=== PATIENT | male | born 1970 | race Caucasian/White ===

== ENCOUNTER 2017-08-18 05:41 | Emergency (ER) | payer OTHER, SELFPAY ==
--- NOTE | 2017-08-18 06:36 | EDPHYS ---
Physician Documentation [facility] Name: Cristian aSnchez Age: 47 yrs Sex: Male : 1970 Arrival Date: 08/18/2017 Time: 05:43 Bed 7 Private MD: ED Physician Nash Morton HPI: 08/18 06:25 This 47 yrs old Male presents to ER via Ambulatory with complaints of Rapid gs heartbeat, High Blood Pressure. 06:25 The patient has elevated blood pressure and discovered this at home. Onset: The gs symptoms/episode began/occurred acutely, this morning. Modifying factors:. Associated signs and symptoms: Pertinent positives: lightheadedness, palpitations, Pertinent negatives: chest pain. Severity of symptoms: At its worst the blood pressure was severe, in the emergency department the blood pressure is improved, markedly. The patient has experienced similar episodes in the past, several times, over past few days. Historical: - Allergies: 05:55 No Known Allergies; lp1 - Home Meds: 05:55 None [Active]; lp1 - PMHx: 05:55 Sarcoidosis; lp1 - PSHx: 05:55 Cholecystectomy; lp1 - Immunization history:: Adult Immunizations up to date. - Social history:: Smoking status: Patient uses tobacco products, chewing tobacco. ROS: 06:25 Cardiovascular: Negative for chest pain. gs 06:25 Respiratory: Negative for orthopnea, pleurisy, shortness of breath. 06:25 All other systems are negative. Exam: 06:25 Head/Face: Normocephalic, atraumatic. Eyes: Pupils equal round and reactive to light, gs extra-ocular motions intact. Lids and lashes normal. Conjunctiva and sclera are non-icteric and not injected. Cornea within normal limits. Periorbital areas with no swelling, redness, or edema. ENT: Nares patent. No nasal discharge, no septal abnormalities noted. Tympanic membranes are normal and external auditory canals are clear. Oropharynx with no redness, swelling, or masses, exudates, or evidence of obstruction, uvula midline. Mucous membranes moist. Neck: Trachea midline, no thyromegaly or masses palpated, and no cervical lymphadenopathy. Supple, full range of motion without nuchal rigidity, or vertebral point tenderness. No Meningismus. Chest/axilla: Normal chest wall appearance and motion. Nontender with no deformity. No lesions are appreciated. Cardiovascular: Regular rate and rhythm with a normal S1 and S2. No gallops, murmurs, or rubs. Normal PMI, no JVD. No pulse deficits. Respiratory: Lungs have equal breath sounds bilaterally, clear to auscultation and percussion. No rales, rhonchi or wheezes noted. No increased work of breathing, no retractions or nasal flaring. Abdomen/GI: Soft, non-tender, with normal bowel sounds. No distension or tympany. No guarding or rebound. No evidence of tenderness throughout. Back: No spinal tenderness. No costovertebral tenderness. Full range of motion. Skin: Warm, dry with normal turgor. Normal color with no rashes, no lesions, and no evidence of cellulitis. MS/ Extremity: Pulses equal, no cyanosis. Neurovascular intact. Full, normal range of motion. Neuro: Awake and alert, GCS 15, oriented to person, place, time, and situation. Cranial nerves II-XII grossly intact. Motor strength 5/5 in all extremities. Sensory grossly intact. Cerebellar exam normal. Normal gait. 06:25 Constitutional: The patient appears alert, awake. 06:25 ECG was reviewed by the Attending Physician. Vital Signs: 05:54 BP 151 / 88; Pulse 68; Resp 18; Temp 97.5(TE); Pulse Ox 97% on R/A; Weight 113.4 kg; lp1 Height 6 ft. 1 in. (185.42 cm); Pain 0/10; 06:23 BP 150 / 83; Pulse 69; Resp 18; Pulse Ox 96% on R/A; Pain 0/10; ea 06:56 BP 122 / 87; Pulse 69; Resp 16; Pulse Ox 95% on R/A; lp1 05:54 Body Mass Index 32.98 (113.40 kg, 185.42 cm) lp1 MDM: 06:10 Patient medically screened. 06:25 Differential diagnosis: hypertensive crisis, afib, a flutter. Data reviewed: vital gs signs, nurses notes. Counseling: I had a detailed discussion with the patient and/or guardian regarding: the presence of at least one elevated blood pressure reading (>120/80) during this emergency department visit. Response to treatment: the patient's symptoms have markedly improved after treatment, the patient's symptoms have resolved after treatment, and as a result, I will discharge patient. Special discussion: I have referred the patient to see his PCP for further evaluation of high blood pressure. 08/18 06:10 Order name: EKG; Complete Time: 06:10 08/18 06:10 Order name: EKG - Nurse/Tech; Complete Time: 06:20 gs EC:25 Rate is 69 beats/min. Rhythm is regular. WA interval is normal. QRS interval is normal. gs T waves are Normal. No ST changes noted. Clinical impression: Normal ECG. Interpreted by me. Administered Medications: No medications were administered Disposition: 08/18/17 06:35 Discharged to Home. Impression: Palpitations, Essential (primary) hypertension. - Condition is Stable. - Discharge Instructions: Hypertension, Palpitations, Managing Your High Blood Pressure. - Medication Reconciliation Form, Thank You Letter, Antibiotic Education, Prescription Opioid Use form. - Follow up: Larry Kwon MD; When: 2 - 3 days; Reason: Re-evaluation by your physician. Signatures: Marivel Hemphill RN RN lp1 Nash Morton MD MD Corrections: (The following items were deleted from the chart) 06:57 06:35 08/18/2017 06:35 Discharged to Home. Impression: Palpitations; Essential lp1 (primary) hypertension. Condition is Stable. Forms are Medication Reconciliation Form, Thank You Letter, Antibiotic Education, Prescription Opioid Use. Follow up: Larry Kwon; When: 2 - 3 days; Reason: Re-evaluation by your physician. gs
--- NOTE | 2017-08-18 06:36 | ER ---
Nurse's Notes [facility] Name: Cristian Sanchez Age: 47 yrs Sex: Male : 1970 Arrival Date: 08/18/2017 Time: 05:43 Bed 7 Private MD: Diagnosis: Palpitations;Essential (primary) hypertension Presentation: 08/18 05:53 Presenting complaint: Patient states: [place] like heart was racing when he woke up this lp1 morning, has happened x 3 days, states blood pressure was 191/101, No hx of HTN, denies any chest pain; States feeling dizzy. Transition of care: patient was not received from another setting of care. Onset of symptoms was August 18, 2017. Initial Sepsis Screen: Does the patient meet any 2 criteria? No. Patient's initial sepsis screen is negative. Does the patient have a suspected source of infection? No. Patient's initial sepsis screen is negative. Care prior to arrival: None. 05:53 Method Of Arrival: Ambulatory lp1 05:53 Acuity: RICHARD 3 lp1 Historical: - Allergies: 05:55 No Known Allergies; lp1 - Home Meds: 05:55 None [Active]; lp1 - PMHx: 05:55 Sarcoidosis; lp1 - PSHx: 05:55 Cholecystectomy; lp1 - Immunization history:: Adult Immunizations up to date. - Social history:: Smoking status: Patient uses tobacco products, chewing tobacco. Screenin:56 Abuse screen: Denies threats or abuse. Denies injuries from another. Nutritional lp1 screening: No deficits noted. Tuberculosis screening: No symptoms or risk factors identified. Fall Risk None identified. 05:56 Abuse screen: Denies threats or abuse. Nutritional screening: No deficits noted. ea Tuberculosis screening: No symptoms or risk factors identified. Fall Risk None identified. Assessment: 06:07 General: Appears uncomfortable, Behavior is calm, cooperative, appropriate for age. ea Pain: Denies pain. Neuro: Level of Consciousness is awake, alert, obeys commands, Oriented to person, place, time, situation. Cardiovascular: Heart tones S1 S2 present Patient's skin is warm and dry. Respiratory: Airway is patent Respiratory effort is even, unlabored, Respiratory pattern is regular, symmetrical, Breath sounds are clear bilaterally. GI: Abdomen is non-distended. : No signs and/or symptoms were reported regarding the genitourinary system. EENT: No signs and/or symptoms were reported regarding the EENT system. Derm: Skin is pink, warm \T\ dry. Musculoskeletal: No signs and/or symptoms reported regarding the musculoskeletal system. 06:56 Reassessment: Patient and/or family updated on plan of care and expected duration. Pain ea level reassessed. Patient is alert, oriented x 3, equal unlabored respirations, skin warm/dry/pink. Discharge instruction given to patient, verbalized understanding of instruction. Vital Signs: 05:54 BP 151 / 88; Pulse 68; Resp 18; Temp 97.5(TE); Pulse Ox 97% on R/A; Weight 113.4 kg; lp1 Height 6 ft. 1 in. (185.42 cm); Pain 0/10; 06:23 BP 150 / 83; Pulse 69; Resp 18; Pulse Ox 96% on R/A; Pain 0/10; ea 06:56 BP 122 / 87; Pulse 69; Resp 16; Pulse Ox 95% on R/A; lp1 05:54 Body Mass Index 32.98 (113.40 kg, 185.42 cm) lp1 ED Course: 05:43 Patient arrived in ED. am2 05:54 Triage completed. lp1 05:54 Arm band placed on left wrist. lp1 05:56 Kezia Hill RN is Primary Nurse. ea 05:56 Patient has correct armband on for positive identification. warehouse shipping supervisor on. Pulse lp1 ox on. NIBP on. 05:58 Nash Morton MD is Attending Physician. gs 06:33 Larry Kwon MD is Referral Physician. gs 06:57 No provider procedures requiring assistance completed. Patient did not have IV access lp1 during this emergency room visit. 06:57 No provider procedures requiring assistance completed. Patient did not have IV access ea during this emergency room visit. Administered Medications: No medications were administered Outcome: 06:35 Discharge ordered by . gs 06:57 Discharged to home ambulatory. lp1 06:57 Condition: good 06:57 Discharge instructions given to patient, Instructed on discharge instructions, follow up and referral plans. Demonstrated understanding of instructions, follow-up care. 06:57 Patient left the ED. lp1 Signatures: Marivel Hemphill RN RN 1 Corina Ruelas am2 Hill, KAREEM Mast RN, ea, Gregory, MD MD gs Corrections: (The following items were deleted from the chart) 05:56 05:53 Presenting complaint: Patient states: [place] like heart was racing when he woke up lp1 this morning, states blood pressure was 191/101, No hx of HTN, denies any chest pain; States feeling dizzy lp1
--- NOTE | 2017-08-18 06:42 | EKG ---
Test Date: 2017-08-18 Test Time: 06:13:32 Medical Record Librarian: SOLOMON MEASUREMENT RESULTS: Intervals: Rate: 69 TN: 154 QRSD: 90 QT: 392 QTc: 420 [place]: P: 22 TN: 154 QRS: -9 T: 4 INTERPRETIVE STATEMENTS: Normal sinus rhythm Normal ECG No previous ECG available for comparison Electronically Signed On 08-18-17 06:41:26 CDT by Larry Kwon
== END 2017-08-18 06:57 | disposition home or self-care (01) ==
LOC: ER 05:41
DX: R00.2 Palpitations (principal); I10 Essential (primary) hypertension; D86.9 Sarcoidosis, unspecified
CPT/HCPCS: 93005; 99284

== ENCOUNTER 2021-06-02 19:15 | Emergency (ER) | payer BC, SELFPAY ==
--- OUTSIDE RECORDS SUMMARY | 2021-06-02 19:29 | XMS REPORT | Continuity of Care Document ---
:1970 Author Organization [facility] t Address [address] [place] [address] Care Team Providers Name Role Phone Jennifer ELIAS, A Primary Care Physician DYLON FARRELL Attending Clinician Unavailable Caio ELIAS, Dylon Attending Clinician Yaz HALE Attending Clinician Unavailable Lab, - Db Attending Clinician Unavailable Jennifer ELIAS, Yaz Attending Clinician Gramm ANTELMO, A Attending Clinician DYLON FARRELL Admitting Clinician Unavailable Caio ELIAS, Dylon Admitting Clinician Payers Payer Name Policy Type Policy Number Effective Date Expiration Date S ourragini [facility] [id number] 2018 00:00:00 Problems Condition Condition Condition Status Onset Resolution Last Treating Co mments Source Name Details Category Date Date Treatment Clinician Date Mass of [place] of Disease Active Univers cecum cecum 2-14 ity of 00:00: [place] [address] Medical [place] Colonic Colonic Disease Active Overview: Univ ers mass mass 1-26 Formattin ity of 00:00: g of this [place] note Medical might be Branch different from the original. Added automatic ally from request for surgery [id number] Obesity Obesity Disease Active Univers (BMI (BMI 1-12 ity of 30-39.9) 30-39.9) 00:00: [place] [address] Medical Branch History of History of Disease Active 2020-04 U nivers prediabete prediabete 1-17 it y of s s 00:00: [address] Branch Iron Iron Disease Active 2021-1 Univers deficiency deficiency 1-12 it y of 00:00: [place] 00 [facility] Screening Screening Disease Active Overview: Univers for for 08 Formattin ity of colorectal colorectal 00:00: g of this [place] cancer cancer 00 note Medical might be Branch different from the original. Added automatic ally from request for surgery [id number] Vitamin D Vitamin D Disease Active Uni vers deficiency deficiency 2-16 it y of 00:00: [place] 00 [facility] Anxiety Anxiety Disease Active Univers ity of [facility] Sarcoidosi Sarcoidosi Disease Active U nivers s s ity of [facility] Allergies, Adverse Reactions, Alerts Allergy Allergy Status Severity Reaction(s) Onset Inactive Treating Comm ents Source Name Type Date Date Clinician NO KNOWN Drug Active Univers ALLERGIE Class ity of [facility] Social History Social Habit Start Date Stop Date Quantity Comments Source Exposure to Not sure [facility] SARS-CoV-2 (event) [facility] Alcohol intake 2021-06-01 2021-06-01 Current University 00:00:00 00:00:00 non-drinker of [facility] alcohol Branch (finding) Tobacco use and 2017-09-22 2017-09-22 Former user Universi ty of exposure 00:00:00 00:00:00 [facility] Cigarettes smoked 2017-09-22 2017-09-22 Univers ity of current (pack per 00:00:00 00:00:00 [facility] ) - Reported Branch Cigarette 2017-09-22 2017-09-22 University of pack-years 00:00:00 00:00:00 [facility] History of tobacco 2009-09-22 Chews Tobacco Uni versity of use 00:00:00 [facility] Sex [birth year] At [birth year] Universit y of 00:00:00 00:00:00 [facility] Smoking Status Start Date Stop Date Source Former smoker 2017-09-22 00:00:00 2017-09-22 00:00[facility]00 [facility] Medications Ordered Filled Start Stop Current Ordering Indication Dosage Frequency Signature Comments Components Source Medication Medication Date Date Medication? Clinician (SIG) Name Name celecoxib Yes 100mg 100 mg, Univ ers (CELEBREX) 2-15 Oral, BID ity of capsule 100 23:00: [place] 00 First dose Medical on [facility] 06/01/21 at 1700, Until Discontinu ed, Routine celecoxib 2021- No 100mg 100 mg, Uni vers (CELEBREX) 06-01 Oral, BID ity of capsule 100 23:00: 23:09 MEALS, [place] mg 00 :39 First dose Medical on [facility] 06/01/21 at 1700, Until Discontinu ed, Routine pantoprazol 0 Yes 40mg 40 mg, Univ ers e 15 Oral, ity of (PROTONIX) 15:00: DAILY, [place] EC tablet 00 First dose Medi gurdeep 40 mg on [facility] 06/01/21 at 0900, Until Discontinu ed, Routine
Indicatio n for use: Severe Sepsis, None of the above pantoprazol 2021- No 40mg 40 mg, Uni vers e 06-01 Oral, ity of (PROTONIX) 15:00: 23:09 DAILY, [place] EC tablet 00 :39 First dose Medi gurdeep 40 mg on [facility] 06/01/21 at 0900, Until Discontinu ed, Routine
Indicatio n for use: Severe Sepsis, None of the above acetaminoph 0 Yes 1000mg 1,000 mg, Univers en 2-15 Oral, Q8H, ity of (TYLENOL) 12:00: [place] 00 on [facility] Medical 1,000 mg 06/01/21 at [facility] h 0600, Until Discontinu ed, Routine acetaminoph 2021- No 1000mg 1,000 mg, Univers en 06-01 Oral, Q8H, ity of (TYLENOL) 12:00: 23:09 First dose [place] tablet 00 :39 on [facility] Medical 1,000 mg 06/01/21 at [facility] h 0600, Until Discontinu ed, Routine methocarbam 2021-0 Yes 500mg 500 mg, Un conrado oL 2-15 Oral, Q8H, ity of (ROBAXIN) 04:00: First dose [place] tablet 500 00 on [facility] Medical mg 05/31/21 at Branch 2200, Until Discontinu ed, Routine methocarbam 2021-0 2021- No 500mg 500 mg, U nivers oL 2-15 02-15 Oral, Q8H, ity of (ROBAXIN) 04:00: 23:09 First dose [place] tablet 500 00 :39 on Mon Medical mg 05/31/21 at Branch 2200, Until Discontinu ed, Routine ibuprofen Yes [id number] 600mg Take 1 Univers 600 mg 2-15 [id number] tablet by ity of tablet 00:00: mouth [place] 00 every 8 Medical (eight) Branch hours as needed (Alternate with Tylenol every 4 hours). ibuprofen Yes [id number] 600mg Take 1 Univers 600 mg 2-15 [id number] tablet by ity of tablet 00:00: mouth [place] 00 every 8 Medical (eight) Branch hours as needed (Alternate with Tylenol every 4 hours). alum-mag 2021- Yes [id number] 30mL Take 30 mL Univers hydroxide-s 2-15 - 77018 by mouth it y of imeth 00:00: 04:59 every 6 [place] :00 (six) Medical mg/5 mL hours as Branch suspension needed for Indigestio n for up to 30 days. alum-mag 2021- Yes [id number] 30mL Take 30 mL Univers hydroxide-s 2-15 - [id number] by mouth it y of imeth 00:00: 04:59 every 6 [place] :00 (six) Medical mg/5 mL hours as Branch suspension needed for Indigestio n for up to 30 days. acetaminoph 2021- Yes [id number] 650mg Take 1 Univers en (TYLENOL 2-06-09 [id number] tablet by i ty of 8 HOUR) 650 00:00: 05:59 [place] mg CR 00 :00 every 8 Medical tablet (eight) Branch hours as needed for Pain (Alternate with Ibuprofen every 4 hours) for up to 7 days. acetaminoph 2021- Yes [id number] 650mg Take 1 Univers en (TYLENOL 2-15 - 62369 tablet by i ty of 8 HOUR) 650 00:00: 05:59 [place] mg CR 00 :00 every 8 Medical tablet (eight) Branch hours as needed for Pain (Alternate with Ibuprofen every 4 hours) for up to 7 days. traMADoL 50 2021- Yes [id number] 50mg Take 1 Uni vers mg tablet 06-01 tablet by ity of 00:00: 05:59 mouth [place] 00 :00 every 8 Medical (eight) Branch hours as needed for Pain (scale 7-10) for up to 3 days. Indication s: acute pain traMADoL 50 2021- Yes [id number] 50mg Take 1 Uni vers mg tablet 06-01 tablet by ity of 00:00: 05:59 mouth [place] 00 :00 every 8 Medical (eight) Branch hours as needed for Pain (scale 7-10) for up to 3 days. Indication s: acute pain acetaminoph 2021- No 1000mg 1,000 mg, Univers en ADULT 06-01 IV ity of ([facility]) 00:00: 18:41 Infusion, [place] injection 00 :00 Administer Medi gurdeep 1,000 mg over 15 Branch Minutes, Q6H, 4 doses, First dose on Mon05/31/21 at 1800, Last dose on Mon06/01/21 at 1200, Routine
Indicatio n: Perioperat daniel Patient acetaminoph 2021- No 1000mg 1,000 mg, Univers en ADULT 06-01 IV ity of ([facility]) 00:00: 18:41 [place]fusion, [place] injection 00 :00 Administer Medi gurdeep 1,000 mg over 15 Branch Minutes, Q6H, 4 doses, First dose on Mon05/31/21 at 1800, Last dose on Mon06/01/21 at 1200, Routine
Indicatio n: Perioperat daniel Patient enoxaparin Yes 40mg 40 mg, Unive rs (LOVENOX) 05-31 Subcutaneo ity of injection 23:00: [place], DAILY, [place] 40 mg 00 First dose Medical on Mon05/31/21 at 1700, Until Discontinu ed, Routine enoxaparin 2021- No 40mg 40 mg, Univ ers (LOVENOX) 05-31 Subcutaneo ity of injection 23:00: 23:09 us, DAILY, [place] 40 mg 00 :39 First dose Medical on Mon05/31/21 at 1700, Until Discontinu ed, Routine ondansetron 2021- No 4mg 4 mg, Slow Univers (ZOFRAN 05-31 IV Push, ity of (PF)) 20:53: 21:16 PRN, 1 [place] injection 4 12 :00 dose, Medical mg Starting Branch on Mon05/31/21 at 1453, Until Discontinu ed, Routine, Nausea and Vomiting (N/V), PACU ondansetron 2021- No 4mg 4 mg, Slow Univers (ZOFRAN 05-31 IV Push, ity of (PF)) 20:53: 21:16 PRN, 1 [place] injection 4 12 :00 dose, Medical mg Starting Branch on Mon05/31/21 at 1453, Until Discontinu ed, Routine, Nausea and Vomiting (N/V), PACU HYDROcodone 2021- No 1{tbl} 1 tablet, Univers -acetaminop 05-31 Oral, ity of hen (NORCO 20:48: 02:09 Q6HPRN, [place] 5) 5-325 mg 25 :46 Starting Medi gurdeep tablet 1 on Mon Branch tablet 05/31/21 at 1448, Until Mon05/31/21 at 2008, Routine, Pain (scale 4-6), PACU HYDROcodone 2021- No 1{tbl} 1 tablet, Univers -acetaminop 05-31 Oral, ity of hen (NORCO 20:48: 02:09 Q6HPRN, [place] 5) 5-325 mg 25 :46 Starting Medi gurdeep tablet 1 on Mon Branch tablet 05/31/21 at 1448, Until Mon05/31/21 at 2008, Routine, Pain (scale 4-6), PACU lactated Yes 1000mL at 75 Univer s ringers IV 2-14 mL/hr, ity of infusion 20:45: 1,000 mL, [place] 1,000 mL 00 IV Medical Infusion, Branch CONTINUOUS , Starting on Mon05/31/21 at 1445, Until Discontinu ed, Routine, PACU ketorolac 2021- No 15mg 15 mg, Unive rs (TORADOL) 2-14 02-15 Slow IV ity of injection 20:45: 14:16 Push, Q6H, [place] 15 mg 00 :36 16 doses, Medical First dose Branch on Mon05/31/21 at 1445, Last dose on Mon06/04/21 at 0600, Routine ketorolac 2021- No 15mg 15 mg, Unive rs (TORADOL) 05-31 02-15 Slow IV ity of injection 20:45: 14:16 Push, Q6H, [place] 15 mg 00 :36 16 doses, Medical First dose Branch on Mon05/31/21 at 1445, Last dose on Mon06/04/21 at 0600, Routine lactated 2021- No 1000mL at 75 Unive rs ringers IV 05-31-15 mL/hr, ity of infusion 20:45: 23:09 1,000 mL, [place] 1,000 mL 00 :39 IV Medical Infusion, Branch CONTINUOUS , Starting on Mon05/31/21 at 1445, Until Mon06/01/21 at 1709, Routine, PACU HYDROmorphO 2021- No .2mg 0.2 mg, Un conrado ne 05-31-15 Slow IV ity of (DILAUDID) 20:38: 02:09 Push, [place] injection 12 :46 Q5MIN PRN, Medi gurdeep 0.2 mg 10 doses, Branch Starting on Mon05/31/21 at 1438, Until Mon05/31/21 at 2009, Routine, Pain (scale 7-10), PACU
Us e approved by (Faculty): PACU USE -ANESTHESI A SERVICE-HY DROMORPHON E INJECTIONS HYDROmorphO 2021- No .2mg 0.2 mg, Un conrado ne 05-31-15 Slow IV ity of (DILAUDID) 20:38: 02:09 Push, [place] injection 12 :46 Q5MIN PRN, Medi gurdeep 0.2 mg 10 doses, Branch Starting on Mon05/31/21 at 1438, Until Mon05/31/21 at 2009, Routine, Pain (scale 7-10), PACU
Us e approved by (Faculty): PACU USE -ANESTHESI A SERVICE-HY DROMORPHON E INJECTIONS ondansetron 2022-0 Yes 4mg 4 mg, Slow Univers (ZOFRAN 2-14 IV Push, ity of (PF)) 20:34: Q6HPRN, [place] injection 4 09 Starting Medi gurdeep mg on Mon Branch 05/31/21 at 1434, Until Discontinu ed, Routine, Nausea and Vomiting (N/V) ondansetron 2021-0 2022- No 4mg 4 mg, Slow Univers (ZOFRAN 2-14 02-15 IV Push, ity of (PF)) 20:34: 23:09 Q6HPRN, [place] injection 4 09 :39 Starting Medi gurdeep mg on Mon Branch 05/31/21 at 1434, Until 06/01/21 at 1709, Routine, Nausea and Vomiting (N/V) glucagon 2021-0 Yes 1mg 1 mg, Univers (GLUCAGEN 2-14 Intramuscu ity of DIAGNOSTIC 20:30: lar, PRN, [place] KIT) 31 Starting Medical injection 1 on [facility] Branch mg 05/31/21 at 1430, Until Discontinu ed, LAMBERTO, Blood Glucose < or = 70 mg/dL and patient is unable to swallow or has mental changes. dextrose 50 2021-0 Yes 25mL 25 mL, Univ ers % in water 2-14 Slow IV ity of (D50W) 20:30: Push, PRN, [place] injection 31 Starting Medica l 25 mL on Mon Branch 05/31/21 at 1430, Until Discontinu ed, LAMBERTO, Blood Glucose < or = 70 mg/dL and patient is unable to swallow or has mental status changes. naloxone 2021-0 Yes .1mg 0.1 mg, Univer s (NARCAN) 2-14 Slow IV ity of injection 20:30: Push, PRN [place] 0.1 mg 31 - SEE Medical INSTRUCTIO Branch NS, Starting on Mon05/31/21 at 1430, Until Discontinu ed, Routine, Sedation/R espiratory Depression morpHINE 2021-0 Yes 2mg 2 mg, Slow Uni vers injection 2 2-14 IV Push, ity of mg 20:30: Q4HPRN, [place] 31 Starting Medical on Mon Branch 05/31/21 at 1430, Until Discontinu ed, Routine, Pain (scale 7-10) glucagon 2022-0 2022- No 1mg 1 mg, Univers (GLUCAGEN 05-31 Intramuscu ity of DIAGNOSTIC 20:30: 23:09 lar, PRN, [place] KIT) 31 :39 Starting Medical injection 1 on Mon Branch mg 05/31/21 at 1430, Until Mon06/01/21 at 1709, LAMBERTO, Blood Glucose < or = 70 mg/dL and patient is unable to swallow or has mental changes. dextrose 50 2021- No 25mL 25 mL, Uni vers % in water 05-31 Slow IV ity o f (D50W) 20:30: 23:09 Push, PRN, [place] injection 31 :39 Starting Medica l 25 mL on Mon Branch 05/31/21 at 1430, Until Mon06/01/21 at 1709, LAMBERTO, Blood Glucose < or = 70 mg/dL and patient is unable to swallow or has mental status changes. naloxone 2021- No .1mg 0.1 mg, Unive rs (NARCAN) 05-31 Slow IV ity of injection 20:30: 23:09 Push, PRN [place] 0.1 mg 31 :39 - SEE Medical INSTRUCTIO [place] NS, Starting on Mon05/31/21 at 1430, Until Mon06/01/21 at 1709, Routine, Sedation/R espiratory Depression morpHINE 2021- No 2mg 2 mg, Slow Un conrado injection 2 05-31 IV Push, ity of mg 20:30: 23:09 Q4HPRN, [place] 31 :39 Starting Medical on Mon Branch 05/31/21 at 1430, Until Mon06/01/21 at 1709, Routine, Pain (scale 7-10) bupivacaine 2021- No PRN, Unive rs liposome 05-31 Starting ity of (PF) 18:02: 02:09 on [facility] (EXPAREL 00 :46 05/31/21 at Medic al (PF)) 1.3 % 1202, Branch (13.3 Intra-op mg/mL) 266 mg, bupivacaine -epinephrin e-pf (SENSORCAIN E W/EPINEPHRI NE) 0.25 %-1:200,000 30 mL, NaCl 0.9% (NS) 50 mL gabapentin 2021- No 300mg 300 mg, Un conrado (NEURONTIN) 05-31 Oral, ity of capsule 300 13:30: 13:36 ONCE, 1 [place] mg 00 :00 dose, On [facility] 05/31/21 at 0730, Routine celecoxib 2021- No 200mg 200 mg, Uni vers (CELEBREX) 05-31 Oral, ity of capsule 200 13:30: 13:36 ONCE, 1 [place] mg 00 :00 dose, On [facility] 05/31/21 at 0730, Routine acetaminoph 2021- No 1000mg 1,000 mg, Univers en 05-31 Oral, ity of (TYLENOL) 13:30: 13:36 ONCE, 1 [place] tablet 00 :00 dose, On Medical 1,000 mg [facility] 05/31/21 at 0730, Routine gabapentin 2021- No 300mg 300 mg, Un conrado (NEURONTIN) 05-31 Oral, ity of capsule 300 13:30: 13:36 ONCE, 1 [place] mg 00 :00 dose, On [facility] 05/31/21 at 0730, Routine celecoxib 2021- No 200mg 200 mg, Uni vers (CELEBREX) 05-31 Oral, ity of capsule 200 13:30: 13:36 ONCE, 1 [place] mg 00 :00 dose, On [facility] 05/31/21 at 0730, Routine acetaminoph 2021- No 1000mg 1,000 mg, Univers en 05-31 Oral, ity of (TYLENOL) 13:30: 13:36 ONCE, 1 [place] tablet 00 :00 dose, On Medical 1,000 mg [facility] 05/31/21 at 0730, Routine peg-electro Yes [id number] 4000mL Take 4,000 Univers lyte soln 2-08 mL by ity of 236-22.74-6 00:00: mouth [place] .74 -5.86 00 SEE-INSTRU Medi gurdeep gram CTIONS. Branch solution Take as directed neomycin Yes [id number] 1000mg Take 2 Univers 500 mg 2-08 tablets by ity of tablet 00:00: mouth [place] 00 SEE-INSTRU Medical CTIONS. 2 Branch tabs PO at 1:00pm, 2:00pm and 10:00pm on 05/30/2021 metroNIDAZO 2021-0 Yes [id number] 1000mg Take 2 Univers LE 500 mg 2-08 tablets by ity of tablet 00:00: mouth [place] 00 SEEINSTR Medical CTIONS. Branch Take 2 PO at 1:00pm, 2:00pm and 10:00pm on 05/30/2021. peg-electro 2021-0 Yes [id number] 4000mL Take 4,000 Univers lyte soln 2-08 mL by ity of 236-22.74-6 00:00: mouth [place] .74 -5.86 00 SEE-INSTRU [facility] gram CTIONS. Branch solution Take as directed neomycin 2021-0 Yes [id number] 1000mg Take 2 Univers 500 mg 2-08 tablets by ity of tablet 00:00: mouth [place] 00 SEEINSTR Medical CTIONS. 2 Branch tabs PO at 1:00pm, 2:00pm and 10:00pm on 05/30/2021 metroNIDAZO 2021-0 Yes [id number] 1000mg Take 2 Univers LE 500 mg 2-08 tablets by ity of tablet 00:00: mouth [place] 00 [facility] Medical CTIONS. Branch Take 2 PO at 1:00pm, 2:00pm and 10:00pm on 05/30/2021. No known 0 No Univers medications 1-26 ity of 14:25: [address] Immunizations Ordered Filled Immunization Date Status Comments [facility] e Immunization Name Name SARS-COV-2 COVID-19 2020-12-01 Completed Unive rsity of PFIZER VACCINE 00:00:00 [facility] SARS-COV-2 COVID-19 2020-12-01 Completed Unive rsity of PFIZER VACCINE 00:00:00 [facility] SARS-COV-2 COVID-19 2020-12-01 Completed Unive rsity of PFIZER VACCINE 00:00:00 [facility] SARS-COV-2 COVID-19 2020-12-01 Completed Unive rsity of PFIZER VACCINE 00:00:00 [facility] SARS-COV-2 COVID-19 2020-12-01 Completed Unive rsity of PFIZER VACCINE 00:00:00 [facility] SARS-COV-2 COVID-19 2020-07-04 Completed Unive rsity of PFIZER VACCINE 00:00:00 [facility] SARS-COV-2 COVID-19 2020-07-04 Completed Unive rsity of PFIZER VACCINE 00:00:00 [facility] SARS-COV-2 COVID-19 2020-07-04 Completed Unive rsity of PFIZER VACCINE 00:00:00 [facility] SARS-COV-2 COVID-19 2020-07-04 Completed Unive rsity of PFIZER VACCINE 00:00:00 [facility] SARS-COV-2 COVID-19 2020-07-04 Completed Unive rsity of PFIZER VACCINE 00:00:00 [facility] TDAP 2018-11-01 Completed University of 00:00:00 [facility] TDAP 2018-11-01 Completed University of 00:00:00 [facility] TDAP 2018-11-01 Completed University of 00:00:00 [facility] TDAP 2018-11-01 Completed University of 00:00:00 [facility] TDAP 2018-11-01 Completed University of 00:00:00 [facility] Vital Signs Vital Name Observation Time Observation Value Comments Source Systolic blood 2021-06-01 18:28:00 139 mm[Hg] Univer sity of pressure [facility] Diastolic blood 2021-06-01 18:28:00 92 mm[Hg] Unive rsity of pressure [facility] Heart rate 2021-06-01 18:28:00 70 /min [facility] Body temperature 2021-06-01 18:28:00 36.5 Rachael [facility] Respiratory rate 2021-06-01 18:28:00 18 /min [facility] Oxygen saturation in 2021-06-01 18:28:00 96 /min [facility] Arterial blood by [facility] Pulse oximetry [place] Body height 2021-06-01 02:17:00 185.4 cm [facility] Body weight 2021-06-01 02:17:00 113.2 kg [facility] BMI 2021-06-01 02:17:00 32.93 kg/m2 Universi ty of [facility] Respiratory rate 2021-05-31 13:38:00 15 /min Univ ersity of [facility] Systolic blood 2021-05-31 13:23:00 135 mm[Hg] Univer sity of pressure [facility] Diastolic blood 2021-05-31 13:23:00 80 mm[Hg] Unive rsity of pressure [facility] Heart rate 2021-05-31 13:23:00 80 /min Universi ty of [facility] Body temperature 2021-05-31 13:23:00 36.39 Rachael Univ ersity of [facility] Body height 2021-05-31 13:23:00 185.4 cm Universi ty of [facility] Body weight 2021-05-31 13:23:00 108.3 kg Universi ty of [facility] BMI 2021-05-31 13:23:00 32.93 kg/m2 Universi ty of [facility] Oxygen saturation in 2021-05-31 13:23:00 97 /min [facility] Arterial blood by [facility] Pulse oximetry Branch Systolic blood 2021-05-12 20:27:00 152 mm[Hg] Univer sity of pressure [facility] Diastolic blood 2021-05-12 20:27:00 88 mm[Hg] Unive rsity of pressure [facility] Heart rate 2021-05-12 20:27:00 80 /min Universi ty of [facility] Body temperature 2021-05-12 20:27:00 36 Rachael Univ ersity of [facility] Body height 2021-05-12 20:27:00 185.4 cm Universi ty of [facility] Body weight 2021-05-12 20:27:00 111.358 kg Universi ty of [place] Medical [place] BMI 2021-05-12 20:27:00 32.39 kg/m2 Universi ty of [facility] Procedures Procedure Date / Time Performing Clinician Source Performed RESECTION LAPAROSCOPY 2021-05-31 16:35:00 Adilene Farrell [facility] RIGHT COLON [facility] RESECTION LAPAROSCOPY 2021-05-31 16:35:00 Adilene Farrell [facility] RIGHT COLON Medical [place] ABORH CONFIRMATION (LAB 2021-05-31 14:55:00 Mirta Kaur [facility] ONLY) Medical Branch ABORH CONFIRMATION (LAB 2021-05-31 14:55:00 Mirta Kaur [facility] ONLY) Medical Branch HB ABO GROUPING 2021-05-31 13:50:00 Mirta Kaur [facility] HB ABO GROUPING 2021-05-31 13:50:00 Mirta Kaur [facility] CONSENT/REFUSAL FOR 2021-05-31 13:17:00 [facility]igned, [facility] Name Medical Branch CONSENT/REFUSAL FOR 2021-05-31 13:17:00 [facility] Name Medical [place] ASSIGNMENT OF BENEFITS 2021-05-31 13:16:44 Doctor Unassigned, No [facility] ASSIGNMENT OF BENEFITS 2021-05-31 13:16:44 Doctor Unassigned, No [facility] DISCLOSURE AND CONSENT, 2021-05-12 06:01:00 Doctor Unassigned, N o [facility] MEDICAL AND SURGICAL Name Medical [facility] PROCEDURES DISCLOSURE AND CONSENT, 2021-05-12 06:01:00 Doctor Unassigned, N o [facility] MEDICAL AND SURGICAL Name Medical [facility] PROCEDURES Encounters Start End Encounter Admission Attending Care Care Encounter Source Date/Time Date/Time Type Type Clinicians Facility Department ID 2021-05-31 2021-06-01 Outpatient R CAIO [facility] IFEANYI [id number] Univers 07:15:00 14:50:00 ADILENE flowers [facility] 2021-05-31 2021-06-01 Hospital RICARDO Farrell [id number] Univers 07:15:00 14:50:00 Encounter Adilene SMITH [id number] ity of [facility] [id number] Anjel as [phone] [facility] 095 Branch 2021-05-31 2021-05-31 Surgery RICARDO Farrell [id number] Univers 09:30:00 12:15:00 Adilene SMITH [id number] it y of [facility] [id number] Anjel as [id number] [facility] 103 [place] 2021-05-28 2021-05-28 Outpatient R JENNIFER [facility] [id number] Univers 07:30:00 09:13:21 WONDIFUL ity o f [facility] 2021-05-28 2021-05-28 Laboratory Lab, Ang - Db [facility] [id number] Univers 07:30:00 07:45:00 Only Starr Hale [facility] [id number] ity of [place] [id number] Anjel as ILAN?BLEA [phone] Wi dical EY 353 [place] MEDICAL OFFICE [facility] 2021-05-28 2021-05-28 Outpatient R [facility] [id number] Univers 07:30:00 07:30:00 [id number] ity of [facility] 2021-05-25 2021-05-25 Telephone Gramm, [facility] [id number] Univers 00:00:00 00:00:00 Heather GONSALES [id number] ity [facility] [id number] [place] PROFESSIO [phone] Wi dical [facility] 204 [facility] 2021-05-12 2021-05-12 Office LISA Farrell [phone] [id number] [employer] 14:15:00 15:10:38 Visit [facility] [id number] i ty of [facility] [id number] [phone] [facility] [address] [place] Results Test Description Test Time Test Comments Results Result Comments Source ABORH Confirmation (Lab Only) 2021-05-31 15:37:57 Test Item Value Reference Range Interpretation Comme nts ABO & RH (test code = 20) A Positive Pe rformed at [facility] Laboratory Services - [facility] Blood [address] [place] [id number] Free: [phone] No. [id number] [facility] Only[facility]2021-05-31 15:37:57 Test Item Value Reference Range Interpretation Comments ABO & RH (test code A Positive Performe d at [facility] = 20) Laboratory [facility] Blood Bank3 [address] [facility] s [id number] Free: [phone] A No. [id number] [facility] Screen - ONCE [id number] 15:27:02 Test Item Value Reference Range Interpretation Comments ABO & RH (test code A POSITIVE Performe d at [facility] = 20) Laboratory [facility] Blood [facility]3 [address] [facility] s [id number] Free: [phone] A No. [id number] IAT (test code = Negative Performed a t [facility] 1185) Laboratory [facility] Blood [facility]3 [address] [place] [address] s [id number] Free: [phone] A No. [id number] [facility] - ONCE [id number] 15:27:02 Test Item Value Reference Range Interpretation Comments ABO & RH (test code A POSITIVE Performe d at [facility] = 20) Laboratory [facility] Blood [facility]3 [address] [facility] s [id number] Free: [phone] A No. [id number] IAT (test code = Negative Performed a t [facility] 1185) Laboratory [facility] Blood [facility]3 [address] [facility] s [id number] Free: [phone] A No. [id number] [facility]
[2021-06-02] MEDS ORDERED: CIPROFLOXACIN 400mg IV 400 MG/200 ML BAG IV ONE (21:12)
[2021-06-02] MEDS ORDERED: MORPHINE 4 MG/ML SYR ONE (21:12)
[2021-06-02] MEDS ORDERED: ONDANSETRON 4 MG/2 ML VIAL ONE (21:12)
[2021-06-02] MEDS ORDERED: NA CHLORIDE 0.9% 2,000 ML ONE (21:13)
[2021-06-02] MEDS ORDERED: METRONIDAZOLE 500mg IVPB 500 MG/100 ML BAG IV ONE (21:13)
[2021-06-02 21:28] LABS: Hematocrit 43.3 % (39.6-49.0); Lymphocytes % 5.9 % (15.3-44.8); Protime INR 1.07; RBC Red Blood Cell Count 5.13 M/uL (4.33-5.43)
[2021-06-02 21:43] LABS: Albumin 3.9 g/dL (3.4-5.0); Bilirubin Direct 0.2 mg/dL (0-0.2); Bilirubin Total 0.7 mg/dL (0.2-1.0); Magnesium 2.2 mg/dL (1.8-2.4); Potassium 3.9 mmol/L (3.5-5.1); Protein, Total 7.3 g/dL (6.4-8.2); Troponin High Sensitivity 4.9 pg/mL (<58.9)
--- NOTE | 2021-06-02 21:59 | RAD REPORT ---
EXAM DESCRIPTION: RAD - Chest Single View - 06/02/2021 9:38 pm CLINICAL HISTORY: ABDOMINAL DISTENTION COMPARISON: No comparisons FINDINGS: Lines: None. Lungs: No evidence of edema or pneumonia. Pleural: No significant pleural effusions or pneumothorax. Cardiac: The heart size is within normal limits. Bones: No acute fractures. Other: IMPRESSION: No acute cardiopulmonary disease.
--- NOTE | 2021-06-02 23:51 | ER ---
Nurse's Notes [facility] Name: Cristian Sanchez Age: 51 yrs Sex: Male : 1970 Arrival Date: 06/02/2021 Time: 19:20 Bed 17 Private MD: Diagnosis: Lower abdominal pain, unspecified-SP RIGHT HEMICOLECTOMY;Elevated white blood cell count;Ileus, unspecified-BOWEL OBSTRUCTION AT THE ANASTAMOTIC SITE Presentation: 06/02 19:23 Chief complaint: EMS states: "He had a colonrectomy recently. We went to have a bowel tw5 movement but it was only air. He has been complaining of hot and cold flashes. BP was 123/83 Pulse 75 RR 17 98% RA. 97.6 Temp. He has no alllergis. He has anxiety and galbladder surgery before. Scaroidosis. 19:23 Method Of Arrival: EMS: [facility] tw5 19:54 Chief complaint: Patient states: "I just had the pain again in the waiting room. I tw5 couldn't hold it and ended up having a bowel movement again.". Coronavirus screen: Vaccine status: Patient reports being unvaccinated. Pfizer. Ebola Screen: Patient negative for fever greater than or equal to 101.5 degrees Fahrenheit, and additional compatible Ebola Virus Disease symptoms Patient denies exposure to infectious person. Patient denies travel to an Ebola-affected area in the 21 days before illness onset. Initial Sepsis Screen: Does the patient meet any 2 criteria? No. Patient's initial sepsis screen is negative. Does the patient have a suspected source of infection? No. Patient's initial sepsis screen is negative. Risk Assessment: Do you want to hurt yourself or someone else? Patient reports no desire to harm self or others. Onset of symptoms was June 02, 2021 at 19:00. 19:54 Acuity: RICHARD 3 tw5 20:00 Chief complaint: Spouse and/or significant other states: "They found a mass on the tw5 colon, on Monday they had the sugery to remove it. They took his appendix and a foot of his colon.". Triage Assessment: 19:57 General: Appears uncomfortable, Behavior is cooperative, appropriate for age. Pain: tw5 Pain currently is 5 out of 10 on a pain scale. at worst was 10 out of 10 on a pain scale. Derm: Skin is pale. Historical: - Allergies: 19:57 No Known Allergies; tw5 - Home Meds: 19:57 tramadol 50 mg Oral tab 1 tab every 6 hours [Active]; tw5 - PMHx: 19:57 sarcoidosis; tw5 - PSHx: 19:57 colonrectomy; tw5 - Immunization history:: Flu vaccine is not up to date. - Social history:: Smoking status: Patient/guardian denies using tobacco, the patient reports quitting approximately 10 years ago. Screenin:01 Abuse screen: Denies threats or abuse. Denies injuries from another. Nutritional tw5 screening: No deficits noted. Tuberculosis screening: No symptoms or risk factors identified. Fall Risk. Assessment: 20:15 General: Appears uncomfortable, Behavior is calm, cooperative. Pain: Complains of pain ll3 in suprapubic area. Neuro: Level of Consciousness is awake, alert, obeys commands, Oriented to person, place, time, situation. Neuro: Reports dizziness. Cardiovascular: Patient's skin is warm and dry. Respiratory: Respiratory effort is even, unlabored, Respiratory pattern is regular, symmetrical. GI: Abdomen is round non-distended, Stools are reported to be loose, Bowel sounds present X 4 quads. Reports lower abdominal pain, States had a BM on himself in lobby, made him sweaty and dizzy States colonectomy on Monday. Derm: Skin Wound noted abdomen. 23:30 Reassessment: Patient and/or family updated on plan of care and expected duration. Pain ll3 level reassessed. Patient is alert, oriented x 3, equal unlabored respirations, skin warm/dry/pink. Patient states feeling better. 06/03 00:39 Reassessment: Patient and/or family updated on plan of care and expected duration. Pain ll3 level reassessed. Patient is alert, oriented x 3, equal unlabored respirations, skin warm/dry/pink. 01:12 Reassessment: Gave report to EMS. ll3 Vital Signs: 06/02 19:54 BP 95 / 59; Pulse 75; Resp 18; Temp 97.7; Pulse Ox 98% on R/A; Weight 106.14 kg; Height tw5 6 ft. 1 in. (185.42 cm); Pain 5/10; 22:15 BP 113 / 65; Pulse 61; Resp 15; Pulse Ox 100% on R/A; ll3 23:30 BP 112 / 67; Pulse 63; Resp 16; Pulse Ox 97% on R/A; ll3 06/03 00:39 BP 106 / 67; Pulse 63; Resp 15; Pulse Ox 100% on R/A; ll3 01:12 BP 127 / 75; Pulse 58; Resp 16; Pulse Ox 97% ; ll3 06/02 19:54 Body Mass Index 30.87 (106.14 kg, 185.42 cm) tw5 ED Course: 06/02 19:20 Patient arrived in ED. wm 19:57 Triage completed. tw5 19:57 Arm band placed on left wrist. tw5 20:01 Patient has correct armband on for positive identification. tw5 20:22 Nat Parham FNP-C is PHCP. kb 20:22 Fredy King MD is Attending Physician. kb 21:24 Initial lab(s) drawn, by me, sent to lab. COVID swab sent to lab. Inserted saline lock: ll3 22 gauge in right antecubital area, using aseptic technique. Blood collected. 21:38 XRAY Chest (1 view) In Process Unspecified. EDMS 21:51 May Ron, RN is Primary Nurse. ll3 23:12 CT Abd/Pelvis - PO and IV Contrast In Process Unspecified. EDMS 23:12 CT Chest For PE Angio In Process Unspecified. EDMS 23:46 initiated a transfer with Vanessa Haro from [facility] Transfer Center. [facility] 06/03 00:25 administrative approval given by Vanessa Haro/ patient has been accepted to [address] bed 956/ Dr. Nieto accepted the patient in transfer/report to be called to [phone]. 01:13 No provider procedures requiring assistance completed. Patient transferred, IV remains ll3 in place. No redness/swelling at site. Administered Medications: 06/02 21:24 Drug: morphine 4 mg Route: IVP; Site: right antecubital; ll3 22:48 Follow up: Response: No adverse reaction; Marked relief of symptoms ll3 21:24 Drug: Zofran (Ondansetron) 4 mg Route: IVP; Site: right antecubital; ll3 22:48 Follow up: Response: No adverse reaction ll3 21:24 Drug: Flagyl (metroNIDAZOLE) 500 mg Volume: 100 ml; Route: IVPB; Rate: 200 ml/hr; ll3 Infused Over: 30 mins; Site: right antecubital; 22:47 Follow up: Response: No adverse reaction; IV Status: Completed infusion; IV Intake: ll3 100ml 21:24 Drug: NS 0.9% 1000 ml Route: IV; Rate: 1 bolus; Site: right antecubital; ll3 06/03 00:40 Follow up: Response: No adverse reaction; IV Status: Completed infusion; IV Intake: ll3 1000ml 06/02 22:33 Drug: Cipro (ciprofloxacin) 400 mg Volume: 200 ml; Route: IVPB; Infused Over: 60 mins; ll3 Site: right antecubital; 06/03 00:41 Follow up: Response: No adverse reaction; IV Status: Completed infusion; IV Intake: ll3 200ml 06/02 23:50 Drug: NS 0.9% 1000 ml Route: IV; Rate: 125 ml/hr; Site: right antecubital; ll3 Intake: 22:47 IV: 100ml; Total: 100ml. ll3 06/03 00:40 IV: 1000ml; Total: 1100ml. ll3 00:41 IV: 200ml; Total: 1300ml. ll3 Outcome: 06/02 23:50 ER care complete, transfer ordered by MD. jacob 06/03 01:13 Transferred by ground EMS to [facility], Transfer form ll3 completed. Condition: stable Discharge instructions given to patient, Instructed on the need for transfer, Demonstrated understanding of instructions. 01:18 Patient left the ED. ll3 Signatures: Dispatcher [employer] EDNat Maria, DEPUTY ASSESSOR-C DEPUTY ASSESSOR-Fredy Saenz MD MD cha [place], MyKena mw2 Juanis Kebede Tiffany tw5 May Ron RN RN ll3
--- NOTE | 2021-06-02 23:51 | EDPHYS ---
Physician Documentation [facility] Name: Cristian Sanchez Age: 51 yrs Sex: Male : 1970 Arrival Date: 06/02/2021 Time: 19:20 Bed 17 Private MD: ED Physician Fredy King HPI: 06/02 20:27 This 51 yrs old Male presents to ER via EMS with complaints of Fever, nidia Lightheaded, Recent Surgery (05-31-21). 20:27 The patient reports fever, not measured (subjective). nidai Historical: - Allergies: 19:57 No Known Allergies; tw5 - Home Meds: 19:57 tramadol 50 mg Oral tab 1 tab every 6 hours [Active]; tw5 - PMHx: 19:57 sarcoidosis; tw5 - PSHx: 19:57 colonrectomy; tw5 - Immunization history:: Flu vaccine is not up to date. - Social history:: Smoking status: Patient/guardian denies using tobacco, the patient reports quitting approximately 10 years ago. ROS: 20:28 Constitutional: Negative for fever, chills, and weight loss, Eyes: Negative for injury, nidia pain, redness, and discharge, ENT: Negative for injury, pain, and discharge, Neck: Negative for injury, pain, and swelling, Cardiovascular: Negative for chest pain, palpitations, and edema, Respiratory: Negative for shortness of breath, cough, wheezing, and pleuritic chest pain, Back: Negative for injury and pain, : Negative for injury, bleeding, discharge, and swelling, MS/Extremity: Negative for injury and deformity, Skin: Negative for injury, rash, and discoloration, Psych: Negative for depression, anxiety, suicide ideation, homicidal ideation, and hallucinations, Allergy/Immunology: Negative for hives, rash, and allergies, Endocrine: Negative for neck swelling, polydipsia, polyuria, polyphagia, and marked weight changes, Hematologic/Lymphatic: Negative for swollen nodes, abnormal bleeding, and unusual bruising. 20:28 Abdomen/GI: Positive for abdominal pain, abdominal cramps, of the right lower quadrant and left lower quadrant. Exam: 20:28 Constitutional: This is a well developed, well nourished patient who is awake, alert, nidia and in no acute distress. Head/Face: Normocephalic, atraumatic. Eyes: Pupils equal round and reactive to light, extra-ocular motions intact. Lids and lashes normal. Conjunctiva and sclera are non-icteric and not injected. Cornea within normal limits. Periorbital areas with no swelling, redness, or edema. ENT: Nares patent. No nasal discharge, no septal abnormalities noted. Tympanic membranes are normal and external auditory canals are clear. Oropharynx with no redness, swelling, or masses, exudates, or evidence of obstruction, uvula midline. Mucous membranes moist. Neck: Trachea midline, no thyromegaly or masses palpated, and no cervical lymphadenopathy. Supple, full range of motion without nuchal rigidity, or vertebral point tenderness. No Meningismus. Chest/axilla: Normal chest wall appearance and motion. Nontender with no deformity. No lesions are appreciated. Cardiovascular: Regular rate and rhythm with a normal S1 and S2. No gallops, murmurs, or rubs. Normal PMI, no JVD. No pulse deficits. Respiratory: Lungs have equal breath sounds bilaterally, clear to auscultation and percussion. No rales, rhonchi or wheezes noted. No increased work of breathing, no retractions or nasal flaring. Back: No spinal tenderness. No costovertebral tenderness. Full range of motion. Male : Normal genitalia with no discharge or lesions. Skin: Warm, dry with normal turgor. Normal color with no rashes, no lesions, and no evidence of cellulitis. MS/ Extremity: Pulses equal, no cyanosis. Neurovascular intact. Full, normal range of motion. Neuro: Awake and alert, GCS 15, oriented to person, place, time, and situation. Cranial nerves II-XII grossly intact. Motor strength 5/5 in all extremities. Sensory grossly intact. Cerebellar exam normal. Normal gait. Psych: Awake, alert, with orientation to person, place and time. Behavior, mood, and affect are within normal limits. 20:28 Abdomen/GI: Inspection: abdomen appears normal, Bowel sounds: active, Palpation: mild abdominal tenderness, in the right lower quadrant and left lower quadrant, Liver: no appreciated palpable abnormalities, Hernia: not appreciated. 22:33 ECG was reviewed by the Attending Physician. [facility] Vital Signs: 19:54 BP 95 / 59; Pulse 75; Resp 18; Temp 97.7; Pulse Ox 98% on R/A; Weight 106.14 kg; Height tw5 6 ft. 1 in. (185.42 cm); Pain 5/10; 22:15 BP 113 / 65; Pulse 61; Resp 15; Pulse Ox 100% on R/A; ll3 23:30 BP 112 / 67; Pulse 63; Resp 16; Pulse Ox 97% on R/A; ll3 06/03 00:39 BP 106 / 67; Pulse 63; Resp 15; Pulse Ox 100% on R/A; ll3 01:12 BP 127 / 75; Pulse 58; Resp 16; Pulse Ox 97% ; ll3 06/02 19:54 Body Mass Index 30.87 (106.14 kg, 185.42 cm) tw5 MDM: 06/02 20:22 Patient medically screened. kb 20:31 Differential diagnosis: URI, bronchitis, pneumonia UTI. Data reviewed: vital signs, [facility] nurses notes, lab test result(s), EKG, radiologic studies, CT scan, plain films. Data interpreted: packing machine pilot can router: rate is 75 beats/min, rhythm is regular, Pulse oximetry: on room air is 98 %. Test interpretation: by ED physician or midlevel provider: ECG, plain radiologic studies. Counseling: I had a detailed discussion with the patient and/or guardian regarding: the historical points, exam findings, and any diagnostic results supporting the discharge/admit diagnosis, lab results, radiology results. 06/02 20:27 Order name: Basic Metabolic Panel [facility] 06/02 20:27 Order name: CBC with Diff [facility] 06/02 20:27 Order name: LFT's [facility] 06/02 20:27 Order name: Magnesium; Complete Time: 22:21 [facility] 06/02 20:27 Order name: NT PRO-BNP; Complete Time: 22:21 [facility] 06/02 20:27 Order name: PT-INR; Complete Time: 21:34 [facility] 06/02 20:27 Order name: Troponin HS; Complete Time: 22:21 [facility] 06/02 20:27 Order name: XRAY Chest (1 view); Complete Time: 22:21 [facility] 06/02 20:27 Order name: Lipase; Complete Time: 22:21 [facility] 06/02 20:27 Order name: CT Abd/Pelvis - PO and IV Contrast [facility] 06/02 20:27 Order name: SARS-COV-2 RT PCR (Document "Date of Onset" if Symptomatic); Complete Time: nidia 22:06/02 20:28 Order name: Basic Metabolic Panel; Complete Time: 22:21 [facility] 06/02 20:28 Order name: CBC with Automated Diff; Complete Time: 21:34 [facility] 06/02 20:28 Order name: Liver (Hepatic) Function; Complete Time: 22:21 [facility] 06/02 20:27 Order name: EKG; Complete Time: 20: [facility] 06/02 20:27 Order name: Cardiac monitoring; Complete Time: :53 [facility] 06/02 20:27 Order name: EKG - Nurse/Tech; Complete Time: :53 [facility] 06/02 20:27 Order name: IV Saline Lock; Complete Time: :53 [facility] 06/02 20:27 Order name: Labs collected and sent; Complete Time: :53 [facility] 06/02 20:27 Order name: O2 Per Protocol; Complete Time: :52 [facility] 06/02 20:27 Order name: O2 Sat Monitoring; Complete Time: : [facility] 06/02 20:30 Order name: CT Chest For PE Angio nidia EC:33 Rate is 60 beats/min. Rhythm is regular. QRS [place] is Normal. CA interval is normal. QRS nidia interval is normal. QT interval is normal. No Q waves. T waves are Normal. No ST changes noted. Clinical impression: Normal ECG and No evidence of ischemia. Interpreted by me. Reviewed by me. Administered Medications: 21:24 Drug: morphine 4 mg Route: IVP; Site: right antecubital; ll3 22:48 Follow up: Response: No adverse reaction; Marked relief of symptoms ll3 21:24 Drug: Zofran (Ondansetron) 4 mg Route: IVP; Site: right antecubital; ll3 22:48 Follow up: Response: No adverse reaction ll3 21:24 Drug: Flagyl (metroNIDAZOLE) 500 mg Volume: 100 ml; Route: IVPB; Rate: 200 ml/hr; ll3 Infused Over: 30 mins; Site: right antecubital; 22:47 Follow up: Response: No adverse reaction; IV Status: Completed infusion; IV Intake: ll3 100ml 21:24 Drug: NS 0.9% 1000 ml Route: IV; Rate: 1 bolus; Site: right antecubital; ll3 06/03 00:40 Follow up: Response: No adverse reaction; IV Status: Completed infusion; IV Intake: ll3 1000ml 06/02 22:33 Drug: Cipro (ciprofloxacin) 400 mg Volume: 200 ml; Route: IVPB; Infused Over: 60 mins; ll3 Site: right antecubital; 06/03 00:41 Follow up: Response: No adverse reaction; IV Status: Completed infusion; IV Intake: ll3 200ml 06/02 23:50 Drug: NS 0.9% 1000 ml Route: IV; Rate: 125 ml/hr; Site: right antecubital; ll3 Disposition Summary: 06/02/21 23:50 Transfer Ordered Transfer Location: [facility] nidia Reason: Higher level of care nidia Condition: Fair nidia Problem: new nidia Symptoms: have improved nidia Accepting Physician: TO [facility](06/03/21 01:18) ll3 Diagnosis - Lower abdominal pain, unspecified - SP RIGHT HEMICOLECTOMY nidia - Elevated white blood cell count nidia - Ileus, unspecified - BOWEL OBSTRUCTION AT THE ANASTAMOTIC SITE nidia Forms: - Medication Reconciliation Form nidia - SBAR form nidia Signatures: Dispatcher [employer] EDNat Maria, SIGNAL WORKER-C SIGNAL WORKER-Fredy Saenz MD MD cha Wood, Tiffany tw5 May Ron RN RN ll3 Corrections: (The following items were deleted from the chart) 06/03 01:18 06/02 23:50 TO [facility] nidia ll3
[2021-06-03 01:24] VITALS: TEMP 97.7
[2021-06-03 01:29] VITALS: BP 127/75; O2SAT 97
--- NOTE | 2021-06-03 12:10 | RAD REPORT ---
EXAM DESCRIPTION: CT - Abdomen Pelvis W Contrast - 06/03/2021 4:44 am ADDENDUM #1 The findings were called to Dr. Fredy King at 11:42 PM central time. Electronically signed by: Alexandru Loera MD 06/02/2021 11:50 PM INSURANCE VERIFIER End of Addendum EXAM DESCRIPTION: Abdomen Pelvis W Contrast CLINICAL HISTORY: 51 years Male ABD PAIN COMPARISON: None. TECHNIQUE: Contiguous axial images obtained through the abdomen and pelvis following IV contrast and oral. Reformatted images obtained. This exam was performed according to our department optimization program which includes automated exp osure control, adjustment of the mA and/or kv according to patient size and/or use of iterative recon struction technique. FINDINGS: The lung bases are clear. There is contrast in the visualized esophagus suggesting reflux. The liver appears unremarkable. The spleen and pancreas appear unremarkable. No adrenal masses. There is a left renal cyst. No hydronephrosis or ureteral calculi. The gallbladder is not visualized. No aneurysmal dilatation of the aorta. There is fluid in the colon suggesting a diarrheal state. There are postsurgical changes around the a scending colon with partial colectomy. There is some wall thickening around the area of the suture li ne which could be postoperative. The loops of small bowel proximal to the anastomotic site are dilate d and filled with fluid measuring up to approximately 3.5 cm in diameter. There is wall thickening in the distal small bowel loop adjacent to the surgical site which is likely resulting in at least part ial small bowel obstruction although changes from ileus are not excluded. There is a small amount of pneumoperitoneum. There is some gas also visualized in the anterior abdomi nal wall. There is some stranding in the subcutaneous fatty tissues in the right anterior lateral abd omen. The findings are likely postsurgical. There is a small amount of free fluid in the pelvis. There are vasectomy clips. There is a small lipoma within the right gluteus musculature. Sclerotic lesion in the right femur neck likely from a bone island. Degenerative changes in the spine at L5-S1. IMPRESSION: 1. There are postsurgical changes around the ascending colon with some wall thickening in the distal small bowel and proximal colon around the area of the suture line which could be posto perative. The loops of small bowel proximal to the anastomotic site are dilated and filled with fluid . The wall thickening in the distal small bowel loop adjacent to the surgical site is likely resultin g in at least partial small bowel obstruction although changes from ileus are not excluded. Clinical correlation and follow-up recommended. 2. There is a small amount of pneumoperitoneum likely postsurgical. 3. There is fluid in the colon suggesting a diarrheal state. 4. There is contrast in the visualized esophagus suggesting reflux. Electronically signed by: Alexandru Loera MD 06/02/2021 11:41 PM INSURANCE VERIFIER Due to temporary technical issues with the PACS/Fluency reporting system, reports are being signed by the in house radiologists without review as a courtesy to insure prompt reporting. The interpreting radiologist is fully responsible for the content of the report.
--- NOTE | 2021-06-03 13:00 | RAD REPORT ---
EXAM DESCRIPTION: CT - Chest For Pe Angio - 06/03/2021 4:46 am CLINICAL HISTORY: 51 years Male Dyspnea;Pain;Chest pain;PE TECHNIQUE: Contiguous axial images obtained through the chest were obtained from the thoracic inlet to the level of the upper abdomen during the pulmonary arterial phase of intravenous contrast adminis tration. Coronal and sagittal reformatted and MIP images provided. This CT exam was performed according to our departmental dose-optimization program, which includes on e or more of the following dose reduction techniques: automated exposure control, adjustment of the m A and/or kV according to patient size, and/or use of iterative reconstruction technique. COMPARISON: No prior exams provided for comparison. FINDINGS: There is no pulmonary embolus. The thoracic aorta is normal without aneurysm or dissection. The heart is normal in size without alexandra cardial effusion. Aside from minimal dependent atelectasis bilaterally, the lungs are clear without consolidation, effu roly, or pneumothorax. No lymphadenopathy in the chest. There is a small amount of free intraperitoneal air with recent postsurgical changes in the anterior right upper quadrant and umbilicus, suggestive of recent laparoscopic surgery. Nonspecific mild fluid and gaseous distention of visualized small bowel loops. IMPRESSION: No pulmonary embolus. No acute cardiopulmonary findings. Recent postsurgical changes in the abdomen with nonspecific mild fluid and gaseous distention of the visualized bowel. Please correlate with the concomitant abdominal CT report Electronically signed by: Dora Tong MD 06/02/2021 11:40 PM DIRECTOR OF OUTPATIENT SERVICES Due to temporary technical issues with the PACS/Fluency reporting system, reports are being signed by the in house radiologists without review as a courtesy to insure prompt reporting. The interpreting radiologist is fully responsible for the content of the report.
== END 2021-06-03 01:18 | disposition short-term general hospital (02) ==
LOC: ER 19:15
DX: K91.30 Postprocedural intestinal obstruction, unspecified as to partial versus complete (principal); D72.829 Elevated white blood cell count, unspecified; Z98.890 Other specified postprocedural states; Z20.822 Contact with and (suspected) exposure to COVID-19
CPT/HCPCS: 96365; 93005; 85025; 80048; 36415; 83735; 85610; 80076; 84484; 83690; 83880; 71275; 74177; 71045; 96375; 99285; 96366; U0003; Q9967; J7030; J2405; J0744